=== PATIENT | male | born 1955 ===

== ENCOUNTER 2024-09-12 06:03 | Inpatient (IN) | payer OTHER ==
[2024-09-06 09:43] VITALS: BP 136/68
[2024-09-06 09:55] LABS: BASO % 0.5 % (0.1-1.2); EOS # 0.32 (0.04-0.54); EOS % 3.5 % (0.7-7.0); LYMPH # 1.66 (1.18-3.74); LYMPH % 18.1 % (19.3-53.1); MEAN PLATELET VOLUME 8.60 fl (9.4-12.4); MONO # 0.54 (0.24-0.82); MONO % 5.9 % (4.7-12.5); NEUT # 6.35 (1.56-6.13); NEUT % 69.3 % (34.0-71.1); RED CELL DISTRIBUTION WIDTH 13.9 % (11.6-14.4)
[2024-09-06 10:08] LABS: COVID-19 AG NEGATIVE (NEGATIVE)
[2024-09-06 10:35] LABS: INR < 0.93
[2024-09-06 11:04] LABS: BUN CREA RATIO 30.0 (7.0-25.0); CREATININE SERUM 0.76 mg/dL (0.70-1.30); GFR 101.39; GLUCOSE FASTING 105.0 mg/dL (65-100); OSMOLALITY SERUM 289.0 MOSM/KG (275-295)
[2024-09-06 11:15] LABS: URINE APPEARANCE Clear; URINE BILIRRUBIN Negative (NEGATIVE); URINE BLOOD Negative; URINE COLOR Yellow; URINE GLUCOSE Negative (NEGATIVE); URINE KETONE Negative (NEGATIVE); URINE LEUKOCYTE Negative; URINE NITRATE Negative; URINE PROTEIN Negative (NEGATIVE); URINE UROBILINOGEN 0.2 E.U./dl
[2024-09-06 11:19] LABS: URINE BACTERIA 9.6 uL (0.0-1933); URINE EPITHELIAL CELLS 2.9 uL (0.0-38.8); URINE RBC 6.5 uL (0.0-20.8); URINE WBC 2.7 uL (0.0-23.2)
[2024-09-06 11:24] LABS: RH POSITIVE
[2024-09-06 11:43] LABS: URINE CAST 0.43 uL (0.0-1.40)
[~2024-09-12] VITALS: Ht 165.1 cm; Wt 59.9 kg
[~2024-09-12 06:03] MED LIST: PEPCID20 MG PO
[2024-09-12] MEDS ORDERED: ENOXAPARIN SODIUM 40 MG/0.4 ML SYRINGE SUBCUTANEO ONE (10:48)
[2024-09-12] MEDS ORDERED: CEFAZOLIN SODIUM 1,000 MG VIAL ONE ×2 (10:49→20:52)
[2024-09-12] MEDS ORDERED: HEMOSTATIC MATRIX 1 KIT KIT TOP ONE (11:47)
[2024-09-12] MEDS ORDERED: BUPIVACAINE HCL/MPF 0.5% 30ML VIAL ONE (11:47)
[2024-09-12] MEDS ORDERED: SURGIFLO APPLICATOR 1 EACH APPL TOP ONE (11:48)
[2024-09-12] MEDS ORDERED: SUGAMMADEX SODIUM 200 MG/2 ML VIAL IV ONE (13:16)
[2024-09-12] MEDS ORDERED: MORPHINE SULFATE 4 MG/ML VIAL IV PRN (16:00)
[2024-09-12] MEDS ORDERED: ONDANSETRON HCL 2 MG/ML VIAL IV PRN (16:00)
[2024-09-12] MEDS ORDERED: RINGERS SOLUTION,LACTATED 1,000 ML IV SCH (16:00)
[2024-09-12] MEDS ORDERED: GABAPENTIN 300 MG CAPSULE PO SCH (17:00)
[2024-09-12] MEDS ORDERED: FAMOTIDINE/PF 20 MG/2 ML VIAL ONE (20:52)
[2024-09-12] MEDS ORDERED: DOCUSATE SODIUM 100MG CAP PO SCH (21:00)
[2024-09-12] MEDS ORDERED: CEFAZOLIN SODIUM 1,000 MG VIAL IV SCH (21:00)
[2024-09-12] MEDS ORDERED: FAMOTIDINE/PF 20 MG/2 ML VIAL IV SCH (21:00)
[2024-09-12 21:39] VITALS: BP 109/63
[2024-09-12 21:54] VITALS: BP 109/63
[2024-09-13 00:54] VITALS: BP 124/64; O2SAT 96
[2024-09-13 06:18] LABS: BASO % 0.2 % (0.1-1.2); EOS # 0.04 (0.04-0.54); EOS % 0.4 % (0.7-7.0); LYMPH # 0.81 (1.18-3.74); LYMPH % 8.9 % (19.3-53.1); MEAN PLATELET VOLUME 9.20 fl (9.4-12.4); MONO # 0.49 (0.24-0.82); MONO % 5.4 % (4.7-12.5); NEUT # 7.75 (1.56-6.13); NEUT % 84.8 % (34.0-71.1); RED CELL DISTRIBUTION WIDTH 13.4 % (11.6-14.4)
[2024-09-13 06:46] LABS: BUN CREA RATIO 15.0 (7.0-25.0); CREATININE SERUM 0.79 mg/dL (0.70-1.30); GFR 96.96; GLUCOSE FASTING 107.0 mg/dL (65-100); OSMOLALITY SERUM 283.0 MOSM/KG (275-295)
[2024-09-13 08:00] VITALS: BP 94/53
[2024-09-13] MEDS ORDERED: ENOXAPARIN SODIUM 40 MG/0.4 ML SYRINGE SUBCUTANEO SCH (09:00)
== END 2024-09-13 08:36 | disposition home or self-care (01) | DRG 708 ==
LOC: CIR.AMB 06:03 → MEDI 19:42
PROVIDERS: ADMIT Urology; ATTEND Urology
PROC: 8E0W4CZ Robotic Assisted Procedure of Trunk Region, Percutaneous Endoscopic Approach (ICD-10-PCS; 2024-09-12)
PROC: 0VT04ZZ Resection of Prostate, Percutaneous Endoscopic Approach (ICD-10-PCS; principal; 2024-09-12 07:00)
DX: C61 Malignant neoplasm of prostate (principal)
CPT/HCPCS: 55866; S2900